=== PATIENT | male | born 1990 | race Caucasian/White ===

== ENCOUNTER 2017-05-31 09:46 | Emergency (ER) | payer OTHER ==
[~2017-05-31] VITALS: Ht 182.9 cm; Wt 100.0 kg
[2017-05-31 10:09] VITALS: BP 165/91; PULSE 99; RESP 16; TEMP 98.8; O2SAT 98
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
[2017-05-31] MEDS ORDERED: MELO15TA20 PO (12:12)
== END 2017-05-31 12:43 | disposition home or self-care (01) ==
LOC: NEPD 09:46
DX: S02.2XXA Fracture of nasal bones, initial encounter for closed fracture (principal); S00.83XA Contusion of other part of head, initial encounter; S07.0XXA Crushing injury of face, initial encounter; Y09 Assault by unspecified means; R04.0 Epistaxis
CPT/HCPCS: 70450; 70486